=== PATIENT | male | born 1965 | race Caucasian/White ===

== ENCOUNTER 2025-06-07 09:23 | Emergency (ER) | payer OTHER, SELFPAY ==
[2025-06-07 09:27] VITALS: BP 171/98
--- NOTE | 2025-06-07 09:33 | ED.CVA ---
History of Present Illness
General
Chief Complaint: CVA/TIA Symptoms
Time Seen by Provider: 06/07/25 09:33
Onset of Stroke Symptoms
Onset of symptoms known: Yes
Date of onset of symptoms: 06/07/25
Time of onset of symptoms: 08:55
History of Present Illness
History of Present Illness:
FOCUSED PAST MEDICAL HISTORY
- Diabetes, high blood pressure
REVIEW OF OLD RECORDS
- No old records available for review in [facility]
Note:
CHIEF COMPLAINT(S)
Vision changes in the right eye, experienced transiently with associated lightheadedness.
HISTORY OF PRESENT ILLNESS
The patient is a 60-year-old male with no significant prior occurrences of similar symptoms, who presented with concerns following a transient episode earlier today at approximately 7:00 AM. The patient reported initially feeling lightheaded while
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 This was followed by a sudden partial loss of vision affecting only the bottom portion of his right eye. He described the loss of vision as covering 'half of my right eye' and later
specified it involved the 'bottom, both inside and outside part.' The patient confirms that his left eye was not affected at the time. The symptoms resolved completely within about a minute of onset.
He also reported a brief dizzy spell about two weeks ago during routine activities. The sudden nature of today�s symptoms and encouragement from coworkers prompted him to seek evaluation. His primary concern was whether these symptoms could indicate
a stroke, as he had never experienced such symptoms before. There are no current vision disturbances, speech difficulties, or ongoing dizziness. The patient is concerned about possible underlying vascular issues.
REVIEW OF SYSTEMS
- Eye, Ear, Nose, and Throat: Transient visual impairment in the right eye, resolved at present.
- Neurological: No ongoing symptoms, occasional lightheadedness noted in recent weeks.
PHYSICAL EXAM
General: Alert, no acute distress.
Skin: Warm, dry.
Head: Normocephalic, atraumatic.
Neck: Supple, trachea midline.
Eye, Ears, Nose, and Throat: Oral mucosa moist. Peripheral vision appears intact upon examination. No current visual deficits noted. Pupils are equally reactive, very limited funduscopic examination
Cardiovascular: Normal peripheral perfusion, No edema.
Respiratory: Respirations are non-labored.
Gastrointestinal: Abdomen nondistended
Back: Normal range of motion, Normal alignment.
Musculoskeletal: Normal ROM, normal strength.
Neurological: Alert and oriented to person, place, time, and situation; no focal neurological deficit observed. There are no field cuts, excellent sensation, excellent coordination
Psychiatric: Cooperative, appropriate mood & affect.
PROBLEM LIST
Acute:
- Transient visual impairment in the right eye
- Lightheadedness
PLAN
1. Order a CT scan with intravenous contrast to evaluate for any vascular concerns and ensure there are no significant intracranial findings, such as plaque buildup or signs of a transient ischemic attack or stroke.
2. Obtain laboratory blood tests to further assess the patients condition.
3. The patient will be monitored, and if no serious pathology is found on imaging, he will likely be discharged.
4. Consideration for follow-up care will be discussed post-evaluation.
DIFFERENTIAL DIAGNOSIS
The Differential Diagnosis includes, in no particular order and is not limited to:
1. Transient Ischemic Attack (TIA)
2. Retinal Detachment or Vascular Occlusion in the right eye
3. Migraine with Aura
4. Ophthalmic Migraine
5. Posterior Circulation Ischemia
6. Vertigo
7. Benign Paroxysmal Positional Vertigo (BPPV)
8. Presyncope or Syncope
9. Occipital Lobe Lesion
10. Hypertensive Crisis
Diabetic retinopathy
RADIOLOGY
- CTA personally reviewed, agree with radiologist interpretation that there is prominence of the right jugular but otherwise no arterial compromise
EKG
- EKG not obtained but is in sinus rhythm on the monitor
LABS
- A1c 7.8, CBC normal, creatinine normal
UPDATE
-SUMMARY OF ENCOUNTER
The patient presented to the emergency department concerned about a transient episode of vision changes in the right eye with associated lightheadedness earlier this morning. A CT scan was performed to evaluate for any vascular issues, such as
arterial blockages or evidence of a transient ischemic attack or stroke. The CT scan revealed no significant findings related to those concerns. However, it did show a prominent right jugular vein, which was noted but not deemed clinically
significant or related to current symptoms. The patients blood pressure was slightly elevated, and he has a history of diabetes, with an HbA1c of 7.6%. The patient is already monitoring his blood sugar and has shown improvement from an HbA1c of 11%
previously.
DISPOSITION
Discharge.
ASSESSMENT
The patients symptoms are not attributable to acute vascular events like a stroke or TIA based on current imaging. The prominent jugular vein is a benign finding. There is a concern about diabetic retinopathy due to known diabetes with elevated
HbA1c, though the patient follows up regularly with an conformal pad former for eye exams.
PLAN
1. Discharge the patient with reassurance and instructions to follow up with primary care for blood pressure and diabetes management.
2. Advisement to schedule an additional appointment with an conformal pad former to evaluate diabetic retinopathy or any other retinal issues.
3. Provide a written note for work excuse for the day as requested by the patient.
INDEPENDENT REVIEW OF LABS AND INTERPRETATION OF TESTS
My independent review of HbA1c indicates a level of 7.6%, which is improved but still elevated, suggesting suboptimal diabetes control.
INDEPENDENT REVIEW OF RADIOLOGY RESULTS
- My independent CT scan interpretation is unremarkable for arterial dissection, signs of stroke, or significant blockages. There is a noted prominence in the right jugular vein, but it is not clinically relevant to symptoms.
FOLLOW-UP INSTRUCTIONS
- Follow up with a primary care provider for further blood pressure and diabetes management.
- Schedule a follow-up visit with an conformal pad former to monitor for potential diabetic retinopathy.
PATIENT EDUCATION AND COUNSELING
The patient was advised on the current findings, reassured about the benign nature of the jugular vein prominence, and the importance of diabetes control to prevent complications such as diabetic retinopathy.
MEDICATION RECONCILIATION
Patient is taking medication to manage diabetes. Specific medication details were not reviewed in the transcript.
MEDICAL DECISION MAKING
- Number and Complexity of Problems Addressed: Chronic conditions affecting care include diabetes.
- Data:
Category 1:
- My independent interpretation of the CT scan showed no arterial dissection or significant findings. This imaging was ordered to rule out vascular events related to symptomatology.
Category 3:
- There was a discussion of management and next steps with the patient, including advice on following up with primary care and ophthalmology.
-Risk:
Consideration of Admission/Observation: Escalation of care including admission/observation was considered given the complexity and risk of the patients presenting complaint, exam findings, and their diabetes. However, ultimately I feel the patient
is safe for outpatient management with close follow-up. Reasoning: Work-up reassuring, does not reveal any acute life/organ-threatening processes, patients symptoms well controlled upon reevaluation, reexamination is reassuring, vitals are stable,
patient agreeable with discharge, reliable for follow-up.
DIAGNOSIS
1. Transient visual impairment, resolved. (ICD-10: H53.8)
2. Elevated blood pressure, likely stress-related. (ICD-10: R03.0)
3. Type 2 diabetes mellitus with recent improved glycemic control. (ICD-10: E11.9)
Phy Exam
Physical Exam
Physical Exam:
See HPI
Course
Orders/Labs/Results
Orders:
Orders
06/07/25 09:41
CT Head & Neck Angio W/wo IV Urgent
Comment:
Reason For Exam: resolved vision loss; dizziness
06/07/25 09:42
Electrocardiogram (*1) Urgent
Reason for Study: TIA/Stroke
EKG- Treatment ONCE
06/07/25 09:45
Complete Blood Count/With Diff Urgent
Comprehensive Metabolic Panel Urgent
Hemoglobin A1c [Glycohemoglobin (HgbA1c)] Urgent
Abnormal Lab Results
06/07/25
09:45
MPV 10.9 H fL
(7.4-10.4)
Glucose 191 H mg/dl
(70-99)
Hemoglobin A1c 7.8 H %
(4.0-5.6)
Total Bilirubin 1.4 H mg/dl
(0.2-1.3)
Total Protein 8.3 H g/dl
(6.3-8.2)
06/07/25 09:45
06/07/25 09:45
Vital Signs
Initial and Last Documented VS:
Initial Vital Signs
Temp Pulse Resp BP Pulse Ox
36.8 C 78 18 171/98 96
06/07/25 09:27 06/07/25 09:27 06/07/25 09:27 06/07/25 09:27 06/07/25 09:27
Last Documented Vital Signs
Temp Pulse Resp BP Pulse Ox
36.8 C 78 18 171/98 96
06/07/25 09:27 06/07/25 09:27 06/07/25 09:27 06/07/25 09:27 06/07/25 09:34
*Pulse Oximetry
SaO2: 96
Oxygen Mode of Delivery: Room air
Patient hypoxic: no
*Critical Care Note
Total Time (30-74mins, 75-104mins- exclusive of procedures): Not Applicable
ED Attending Note
-
Portions of this chart may have been created with voice recognition software.� Occasional wrong word or��sound alike� substitutions may have occurred due to the inherent limitations of voice recognition software.
Discharge Plan
Departure
Patient Disposition: Home (Routine Discharge)
Date of Disposition: 06/07/25
Time of Disposition: 11:47
Patient with high blood pressure during this ER visit?: Yes
Discharge Problem:
Changes in vision
Instructions: BLOOD PRESSURE
Referrals:
UNKNOWN - PT DOES,NOT KNOW [Family Provider]
Activity Restrictions/Additional Instructions:
The cause of your symptoms is unclear. Your basic blood work is unremarkable however of note your A1c is 7.8%. A CAT scan of your brain shows no abnormality, the CAT scan of the neck shows normal carotids with no sign of stenosis, occlusion, or
dissection. Incidentally noted is a relatively prominent distended right internal jugular vein. I also recommend that you follow-up with your conformal pad former and primary care doctor for reevaluation
Interventions
Interventions:
*Risk Screen - Suicide Last Done: 06/07/25 09:27
*General Assessment Last Done: 06/07/25 09:27
ED- Pulmonary Assessment Last Done: 06/07/25 09:59
ED- Neurological Assessment Last Done: 06/07/25 09:59
ED- Cardiac Assessment Last Done: 06/07/25 09:59
Discharge Date and Time
Print Language: CYMRO
[2025-06-07 10:02] VITALS: BMI 38.8
[2025-06-07 10:14] LABS: Hematocrit 43.6 % (39.0-52.0); Hemoglobin 15.0 g/dL (13.0-18.0); Mean Corp Hgb Conc. 34.4 g/dL (33.0-37.0); Mean Corpuscular Volume 82.4 fL (80.0-94.0); Nucleated Red Blood Cells % 0 % (-); Platelet Count 232 10^3/uL (130-400); Red Cell Dist. Width 12.7 % (11.5-14.5)
[2025-06-07 10:23] LABS: ALT (SGPT) 31 U/L (0-50); AST (SGOT) 23 U/L (17-59); Albumin 5.0 g/dl (3.5-5.0); Alkaline Phosphatase 66 U/L (38-126); Blood Urea Nitrogen 14 mg/dl (9-20); Calcium 9.9 mg/dl (8.4-10.2); Carbon Dioxide 30 mmol/L (22-30); Chloride 102 mmol/L (98-107); Estimated Creatinine Clearance > 125 ml/min; Glucose 191 mg/dl (70-99); Potassium 4.4 mmol/L (3.5-5.1); Sodium 141 mmol/L (135-145); Total Protein 8.3 g/dl (6.3-8.2); eGFR > 60.00
[2025-06-07 10:31] LABS: Glycohemoglobin (HgbA1c) 7.8 % (4.0-5.6)
[2025-06-07 11:27] VITALS: BP 138/86
== END 2025-06-07 12:10 | disposition home or self-care (01) ==
LOC: EMR 09:23
PROVIDERS: EMERGENCY PHYSICIAN Emergency Medicine
DX: H53.121 Transient visual loss, right eye (principal); R42 Dizziness and giddiness; R03.0 Elevated blood-pressure reading, without diagnosis of hypertension; E11.9 Type 2 diabetes mellitus without complications
CPT/HCPCS: 99284; 70496; 70498; 80053; 83036; 85025; 93005; Q9967